=== PATIENT | female | born 1990 | race Caucasian/White ===

== ENCOUNTER 2022-01-27 09:46 | Emergency (ER) | payer BC ==
[~2022-01-27] VITALS: Ht 165.1 cm; Wt 55.8 kg
[2022-01-27] MEDS ORDERED: VITAFOL-OB+DHA1 EACH PO (10:16)
[2022-01-27] MEDS ORDERED: FISH OIL + D31 EACH PO (10:17)
[2022-01-27] MEDS ORDERED: CALCIUM500 MG PO (10:17)
== END 2022-01-27 14:03 | disposition home or self-care (01) ==
LOC: ED 09:46
DX: O26.891 Other specified pregnancy related conditions, first trimester (principal); R10.2 Pelvic and perineal pain; Z79.899 Other long term (current) drug therapy; Z3A.01 Less than 8 weeks gestation of pregnancy
CPT/HCPCS: 36415; 76801; 76817; 80053; 81001; 83690; 84702; 85025; 86900; 86901; 99284-25